=== PATIENT | female | born 1940 | race Caucasian/White ===

== ENCOUNTER 2017-07-30 10:10 | Day surgery (SDC) | payer MEDICARE, OTHER ==
[~2017-07-30 10:10] MED LIST: Sodium Chloride 0.9% 5 ML Syringe FLUSH PRN
[2017-07-30] MEDS ORDERED: Propofol 200 MG/20 ML SDV ONE (10:11)
[2017-07-30] MEDS ORDERED: EPINEPHrine 1:10,000 1 MG/10 ML Syringe ONE (10:27)
[2017-07-30] MEDS: Lactated Ringers 1,000 ML IV SCH (10:35)
[2017-07-30] MEDS ORDERED: Propofol 200 MG/20 ML SDV IV ONE (11:29)
--- NOTE | 2017-07-30 11:48 | PCM.OPNOTE ---
- General Post-Op/Procedure Note Date of Surgery/Procedure: 07/30/17 Operative Procedure(s): Colonoscopy Findings: Normal colonoscopy except for a few diverticuli in the descending colon Anesthesia Technique: MAC Primary Surgeon: Yoana Amaya Condition: Good Free Text/Narrative:: INFORMED CONSENT: Patient is here today for elective colonoscopy. All aspects of this procedure have been discussed with the patient. All possible complications also, including possibility of perforation, infection, pain, bleeding and unknown complications. In the event of perforation patient may need to have abdominal exploration, colon resection, colostomy and even was discussed. Anesthetic complications were handled by anesthesia department. The patient understands fully well. Patient did not have any further questions for me at the end of my interview. The patient wishes for me to proceed. PREOPERATIVE DIAGNOSIS/INDICATIONS: [Positive: [place] [employer] test] POSTOPERATIVE DIAGNOSIS: [Diverticulosis of the descending and sigmoid colon otherwise negative] INSTRUMENT USED: Olympus videocolonoscope. ASA CLASSIFICATION: [2] ANESTHESIA: Continuous EKG, oximetry and intermittent blood pressure and respiratory monitoring were performed throughout the procedure. IV Versed and Fentanyl were administered. PROCEDURE PERFORMED: Colonoscopy POSITIONS OF PATIENT: Left lateral. RECTUM: Normal. SIGMOID COLON: Multiple diverticulosis seen.. DESCENDING COLON: Normal. SPLENIC FLEXURE: Normal. TRANSVERSE COLON: Normal. HEPATIC FLEXURE: Normal. ASCENDING COLON: Normal. CECUM: Normal. ILEOCECAL VALVE: Normal. BIOPSY: None. TOLERANCE: Excellent. COMPLICATIONS: None.
== END 2017-07-30 13:37 | disposition home or self-care (01) ==
LOC: KA.SDS 10:10
PROVIDERS: ATTEND Family Medicine
DX: K57.30 Diverticulosis of large intestine without perforation or abscess without bleeding (principal); E78.2 Mixed hyperlipidemia; Z79.899 Other long term (current) drug therapy
CPT/HCPCS: J2704; J7120